=== PATIENT | male | born 1945 | race Two or more races ===

== ENCOUNTER 2020-08-20 14:37 | Emergency (ER) | payer OTHER ==
[~2020-08-20] VITALS: Ht 182.9 cm; Wt 90.7 kg
[2020-08-20 15:06] VITALS: BP 128/75
== END 2020-08-20 16:09 | disposition home or self-care (01) ==
LOC: ER 14:37
DX: S46.912A Strain of unspecified muscle, fascia and tendon at shoulder and upper arm level, left arm, initial encounter (principal); X58.XXXA Exposure to other specified factors, initial encounter; Y93.89 Activity, other specified; Y92.89 Other specified places as the place of occurrence of the external cause; Y99.8 Other external cause status
CPT/HCPCS: 73030